=== PATIENT | male | born 1970 | race Two or more races ===

== ENCOUNTER 2018-06-20 07:20 | Day surgery (SDC) | payer OTHER ==
[~2018-06-20] VITALS: Ht 172.7 cm; Wt 99.8 kg
[2018-06-20] VITALS (11 sets, daily range): BP systolic 125–157; BP diastolic 60–79
[~2018-06-20 07:20] MED LIST: NKM; ceFAZolin 1gm in D5W 55ml IVP SCH; celeBREX 200mg Cap **SURGERY PATIENTS ONLY ORAL SCH; oxyCONTIN 20mg tab ORAL SCH
--- NOTE | 2018-06-20 08:42 | Pre-Procedure Note/Attestation ---
Pre-Procedure Note/Attestation Complete Prior to Procedure Planned Procedure: left Procedure Narrative: shoulder arthroscopy, sad, removal of hardware Indications for Procedure Pre-Operative Diagnosis: left shoulder arthroscopy, impingement, painful r humerus hardware Attestation I attest that I discussed the nature of the procedure; its benefits; risks and complications; and alternatives (and the risks and benefits of such alternatives ), prior to the procedure, with the patient (or the patient's legal wholesale representative). I attest that, if there was a reasonable possibility of needing a blood transfusion, the patient (or the patient's legal wholesale representative) was given the [facility] standardized written summary, pursuant to the [employer]it Blood Safety Act ([place] Health and Safety Code # 1645, as amended). I attest that I re-evaluated the patient just prior to the surgery and that there has been no change in the patient's H&P, except as documented below: Anthony Garcia MD Jun 20, 2018 08:42
--- NOTE | 2018-06-20 08:42 | Operative Note - PDOC ---
Operative Note Operative Note Pre-op Diagnosis: left shoulder arthroscopy, impingement, painful r humerus hardware Procedure: see op report Post-op Diagnosis: same as pre-op plus Operative Findings: consistent w/pre-op dx studies Anesthesia: regional Specimen: none Complications: none Condition: stable Estimated Blood Loss: none Implant(s) used?: No Anthony Garcia MD Jun 20, 2018 08:42
[2018-06-20] MEDS ORDERED: Tylenol #3 tab (300mg/30mg) ORAL PRN (08:45)
[2018-06-20] MEDS ORDERED: HYDROmorphone 1mg/ml Carpuject SUBQ PRN (08:45)
[2018-06-20] MEDS ORDERED: Norco 5mg/325mg tab ORAL PRN ×2 (08:45→10:45)
[2018-06-20] MEDS ORDERED: D5 1/2NS 1,000 ML IV SCH (08:45)
[2018-06-20] MEDS ORDERED: Ropivacaine 5mg/ml Vial 30ml INJ ONE ×3 (10:37→10:46)
[2018-06-20] MEDS ORDERED: Lidocaine 1% 10mg/ml/Epi 0.005mg/ml 30ml vial INJ ONE (10:37)
[2018-06-20] MEDS ORDERED: Bupivacaine 0.5% Inj 30 ml vial INJ ONE (10:37)
[2018-06-20] MEDS ORDERED: EPINEPHrine 1mg/1ml Amp ONE (10:37)
[2018-06-20] MEDS ORDERED: LR 1000ml 1,000 ML IVLG SCH (10:42)
--- NOTE | 2018-06-20 10:42 | Anethesia Preoperative Eval ---
Anesthesia Pre-op PMH/ROS General Date of Evaluation: Jun 20, 2018 Time of Evaluation: 10:43 Anesthesiologist: Kevin ASA Score: ASA 2 Mallampati Score Class I : Soft palate, uvula, fauces, pillars visible Class II: Soft palate, uvula, fauces visible Class III: Soft palate, base of uvula visible Class IV: Only hard plate visible Mallampati Classification: Class II Surgeon: Jose Diagnosis: L Shoulder Pain Surgical Procedure: L Shoulder Arthroscopy Anesthesia History: none Family History: no anesthesia problems Allergies: Coded Allergies: No Known Allergies (Unverified , 06/18/18) Medications: see eMAR Past Medical History Cardiovascular: Reports: HTN Neurologic/Psychiatric: Reports: depression/anxiety Other: obesity - BMI 36 Anesthesia Pre-op Phys. Exam Physician Exam Last Vital Signs Date Time Temp Pulse Resp B/P (MAP) Pulse Ox O2 Delivery O2 Flow Rate FiO2 06/20/18 07:52 97.3 50 20 125/78 (94) 97.3 06/20/18 07:48 Room Air Constitutional: NAD Neurologic: CN 2-12 intact Cardiovascular: RRR Respiratory: CTA Gastrointestinal: S/NT/ND Airway Exam Mallampati Score: Class II MO: full ROM: limited Teeth: intact Anesthesia Pre-op A/P Risk Assessment & Plan Assessment: ASA 2 Plan: GA, BIS, L Supraclavicular Block Status Change Before Surgery: No Pre-Antibiotics Dru Grams Ancef IV Given Within 1 Hr of Incision: Yes Time Given: 11:04 Luis Brown MD Jun 20, 2018 10:42
[2018-06-20] MEDS ORDERED: Metoclopramide 10mg/2ml Inj IVP PRN (10:45)
[2018-06-20] MEDS ORDERED: Labetalol 5mg/ml 20ml vial IV PRN (10:45)
[2018-06-20] MEDS ORDERED: oxyCODONE HCL/Acetaminophen 5/325mg ORAL PRN (10:45)
[2018-06-20] MEDS ORDERED: DiphenhydrAMINE 50mg/ml Inj IVP PRN (10:45)
[2018-06-20] MEDS ORDERED: Midazolam 2mg/2ml Inj IVP PRN (10:45)
[2018-06-20] MEDS ORDERED: LORazepam Inj 2mg/ml 1ml IV PRN (10:45)
[2018-06-20] MEDS ORDERED: Ketorolac 30mg Inj IV PRN ×2 (10:45)
[2018-06-20] MEDS ORDERED: Hydromorphone 0.5mg/0.5ml inj IVP PRN (10:45)
[2018-06-20] MEDS ORDERED: HYDROcodone/Acetamin 7.5/325 tab ORAL PRN (10:45)
[2018-06-20] MEDS ORDERED: fentaNYL 100 mcg/2 mL IV PRN ×2 (10:45→13:15)
[2018-06-20] MEDS ORDERED: Atropine Inj 1mg/10ml Syr IV PRN (10:45)
[2018-06-20] MEDS ORDERED: Sodium Chloride 10ml vial INJ ONE (10:46)
[2018-06-20] MEDS ORDERED: Lidocaine 1% MPF 10mg/ml 5ml ONE (10:46)
[2018-06-20] MEDS ORDERED: Dexamethasone 4mg/ml vial ONE (10:46)
[2018-06-20] MEDS ORDERED: Alfentanil 2ml Inj ONE (10:49)
[2018-06-20] MEDS ORDERED: LR 1000ml ONE (11:00)
[2018-06-20] MEDS ORDERED: NS Irrig 4000ml IRRIG ONE (11:00)
[2018-06-20] MEDS ORDERED: Propofol 200mg/20ml IV ONE (11:00)
[2018-06-20] MEDS ORDERED: Sterile Water For Irrig 2000ml IRRIG ONE (11:00)
--- NOTE | 2018-06-20 11:24 | Immediate Post-Op Evaluation ---
Immediate Post-Op Evalulation Immediate Post-Op Evalulation Procedure: L Shoulder Arthroscopy Date of Evaluation: Jun 20, 2018 Time of Evaluation: 13:14 IV Fluids: 650 LR Blood Products: 0 Estimated Blood Loss: 50 Urinary Output: 0 Blood Pressure Systolic: 147 Blood Pressure Diastolic: 72 Pulse Rate: 53 Respiratory Rate: 16 O2 Sat by Pulse Oximetry: 100 Temperature (Fahrenheit): 97 Pain Score (1-10): 2 Nausea: No Vomiting: No Complications 0 Patient Status: awake, reacts, patent, none Hydration Status: adequate Dru Grams Ancef IV Given Within 1 Hr of Incision: Yes Time Given: 11:04 Luis Brown MD Jun 20, 2018 11:24
--- NOTE | 2018-06-20 11:26 | 48 Hour Post Anesthesia Eval ---
Post Anesthesia Evaluation Procedure: L Shoulder Arthroscopy Date of Evaluation: Jun 20, 2018 Time of Evaluation: 15:24 Blood Pressure Systolic: 133 0: 71 Pulse Rate: 62 Respiratory Rate: 18 Temperature (Fahrenheit): 98.2 O2 Sat by Pulse Oximetry: 96 Airway: patent Nausea: No Vomiting: No Pain Intensity: 2 Hydration Status: adequate Cardiopulmonary Status: Stable Mental Status/LOC: patient returned to baseline Follow-up Care/Observations: 0 Post-Anesthesia Complications: 0 Follow-up care needed: ready to discharge Luis Brown MD Jun 20, 2018 11:26
--- NOTE | 2018-06-26 09:00 | Operative Note - Dictated ---
DATE OF OPERATION: 06/20/2018 PREOPERATIVE DIAGNOSES: 1. Left shoulder SLAP tear. 2. Left shoulder possible rotator cuff tear. 3. Left humerus painful hardware, status post ORIF of left humerus shaft fracture. POSTOPERATIVE DIAGNOSES: 1. Left shoulder partial subscap rotator cuff tear. 2. Left shoulder partial supraspinatus rotator cuff tear. 3. Impingement syndrome/bursitis. 4. Painful hardware of left humerus shaft. PROCEDURE: 1. Left shoulder diagnostic arthroscopy and extensive intra-articular debridement. 2. Left shoulder debridement of articular-sided subscap and rotator cuff tear. 3. Subacromial decompression and bursectomy. 4. Removal of left painful hardware of 1 plate and 6 screws. 5. Complex wound closure of left humerus measuring 8 cm. SURGEON: Anthony Garcia M.D. ANESTHESIA: Interscalene with general. ANESTHESIOLOGIST: Luis Brown M.D. INDICATION FOR PROCEDURE: The patient is a pleasant gentleman, who sustained a significant injury to his left upper extremity, who has had a humerus fracture that was treated by open reduction and internal fixation. He subsequently had continued left shoulder pain. He failed conservative treatment and elected to undergo left shoulder arthroscopy with concurrent removal of the hardware. Risks, limitations, expectations, and complications of procedure were discussed in detail. All questions were addressed. DESCRIPTION OF PROCEDURE: After informed consent was obtained, the patient was brought to the operating room. The patient was placed under monitored anesthesia control. Left shoulder was prepped and draped in sterile manner. Portal sites were injected with 0.25% Marcaine with epinephrine. Inferolateral stab incision was then made. Trocar was introduced into the glenohumeral joint. There was some fraying along the subscap tendon. The anteromedial working portal was established. The labrum was probed as was the superior labrum. The superior portion of the subscap along the insertion in humeral head had some tendinosis and tearing. Debridement down to stable tissue was performed. There was no gross detachment in the subscap insertion. The undersurface of the supraspinatus also was noted to have a partial articular-sided tear. This was debrided down to stable rim of tissue. The posterior labrum was evaluated and noted to be intact. At this point, the camera was placed in the subacromial space. Complete bursectomy was performed. The undersurface of the acromion was identified. Acromioplasty was started from lateral to medial and completed from posterior to anterior. The bursectomy was then completed in the posterior aspect of the notch. At this point, the portal sites were closed with 3-0 Monocryl sutures. The previous skin incision was then marked out. The previous scar which had was coaxed out down to healthy tissue. A triceps splitting approach was then used similar to what they used for the surgery. The plate was identified along with the 6 screws which were all removed. The wound was copiously irrigated. The was reapproximated with #1 Vicryl suture. Skin was reapproximated with 2-0 Vicryl suture and 3-0 Monocryl suture. Dermabond dressing. The patient was awoken and taken to recovery room with stable vital signs. ESTIMATED BLOOD LOSS: 50 mL. COMPLICATIONS: None. SPECIMENS: None. EXPLANTS: Include 1 plate and 6 screws. Anthony Garcia M.D. DR: Rich JOB#: [id number] CC: JACKIE
== END 2018-06-20 15:40 | disposition home or self-care (01) ==
LOC: SUR 07:20
DX: M75.102 Unspecified rotator cuff tear or rupture of left shoulder, not specified as traumatic (principal); M75.42 Impingement syndrome of left shoulder; M75.52 Bursitis of left shoulder; T84.84XA Pain due to internal orthopedic prosthetic devices, implants and grafts, initial encounter; Y83.8 Other surgical procedures as the cause of abnormal reaction of the patient, or of later complication, without mention of misadventure at the time of the procedure; Y92.009 Unspecified place in unspecified non-institutional (private) residence as the place of occurrence of the external cause; I10 Essential (primary) hypertension; F32.9 Major depressive disorder, single episode, unspecified; F41.9 Anxiety disorder, unspecified; E66.9 Obesity, unspecified; Z68.36 Body mass index [BMI] 36.0-36.9, adult
CPT/HCPCS: 20680; 29823; 29826; J0171; J0690; J1100; J2250; J2405; J2704; J2795; J3490; J7120; 94003; 94150